=== PATIENT | female | born 1945 | race Hispanic/Latino ===

== ENCOUNTER → 2019-04-11 | Outpatient (CLI) | payer MEDICARE ==
[~2019-04-11] VITALS: Ht 157.5 cm; Wt 78.8 kg
[~2019-04-11] MED LIST: ACET-2247 PO; CEFAZOLIN SODIUM 1 GM VIAL IVP SCH; CLINDAMYCIN; CLON0.1T PO; CYCL30DR OU; FERS325 PO; FURO20TA4 PO; INSU3INS3 SQ; LOSA100T58 PO; METF500S7 PO; NITR0.4T50 SL; PANT40TA25 PO; ROSU20TA31 PO; TRAM50TA4 PO; VITAMIN D; [UNRECOGNIZED DRUG - OTHER] TP
[2019-04-11 14:24] LABS: BASOPHILS % (AUTO) 0.4 % (0.0-5.0); EOSINOPHILS % (AUTO) 2.3 % (0.0-8.0); HEMATOCRIT 38.6 % (36-48); LYMPHOCYTES % (AUTO) 21.7 % (21.0-51.0); MEAN CORPUSCULAR HGB CONC 29.5 g/dL (32.0-36.0); MEAN CORPUSCULAR VOLUME 88.1 fL (79-99); MONOCYTES % (AUTO) 5.2 % (3.0-13.0); PLATELET COUNT (AUTO) 250 K/uL (130-400); RED BLOOD CELL COUNT(AUTO) 4.38 MIL/uL (4.00-5.50); RED CELL DISTRIBUTION WIDTH 17.1 % (11.0-15.5); WHITE BLOOD COUNT (AUTO) 9.2 K/uL (4.8-10.8)
[2019-04-11 14:43] LABS: ALBUMIN 2.9 g/dL (3.5-5.0); BILIRUBIN,TOTAL 0.8 mg/dL (0.2-1.0); CREATININE 0.9 mg/dL (0.5-1.5); POTASSIUM 3.4 mmol/L (3.5-5.1); TOTAL PROTEIN, SERUM 7.9 g/dL (6.0-8.3)
--- NOTE | 2019-04-11 15:28 | NUR ---
EKG OK PER TERRELL JAIN TO PROCEED WITH PROCEDURE
[2019-04-11 15:31] VITALS: BP 161/80
== END | disposition home or self-care (01) ==
LOC: DAH 10:00 → EDSTATUS 04-18 10:50
PROVIDERS: ATTEND Plastic Surgery
DX: Z01.818 Encounter for other preprocedural examination (principal); C43.10 Malignant melanoma of unspecified eyelid, including canthus; Z79.4 Long term (current) use of insulin; Z79.899 Other long term (current) drug therapy; Z82.49 Family history of ischemic heart disease and other diseases of the circulatory system; Z82.5 Family history of asthma and other chronic lower respiratory diseases; Z83.3 Family history of diabetes mellitus
CPT/HCPCS: 36415; 80053; 85025; 93005

== ENCOUNTER → 2019-09-21 | Outpatient (CLI) | payer MEDICARE ==
[~2019-09-21] MED LIST changes: -CEFAZOLIN SODIUM 1 GM VIAL IVP SCH; +IOHEXOL 350 MG/ML 100ML INFUS..BTL IV ONE; -PANT40TA25 PO; +PANT40TA54 PO
== END | disposition home or self-care (01) ==
LOC: RAH 10:56
PROVIDERS: ATTEND Internal Medicine
DX: I67.82 Cerebral ischemia (principal); G45.9 Transient cerebral ischemic attack, unspecified; G31.89 Other specified degenerative diseases of nervous system; R22.0 Localized swelling, mass and lump, head
CPT/HCPCS: 70450; 93880; Q9967

== ENCOUNTER → 2020-04-02 | Outpatient (CLI) | payer MEDICARE ==
[~2020-04-02] MED LIST changes: -IOHEXOL 350 MG/ML 100ML INFUS..BTL IV ONE
== END | disposition home or self-care (01) ==
LOC: RAH 08:39
PROVIDERS: ATTEND Internal Medicine
DX: I07.1 Rheumatic tricuspid insufficiency (principal); G45.9 Transient cerebral ischemic attack, unspecified; E66.9 Obesity, unspecified; E78.5 Hyperlipidemia, unspecified; E11.9 Type 2 diabetes mellitus without complications
CPT/HCPCS: 93306; 93356